=== PATIENT | female | born 2000 | race African-American/Black ===

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

== ENCOUNTER 2022-11-10 10:51 | Emergency (ER) | payer MEDICAID ==
[2022-11-10] MEDS ORDERED: Ibuprofen 600 MG Tab PO ONE (12:57)
[2022-11-10 13:12] LABS: BASOPHILS ABSOLUTE AUTO 0.02 K/mm3 (0.01-0.08); BASOPHILS PERCENT AUTO 0.4 % (0.1-1.2); EOSINOPHILS ABSOLUTE AUTO 0.15 K/mm3 (0.04-0.36); EOSINOPHILS PERCENT AUTO 3.1 (0.7-5.8); HEMATOCRIT 35.3 % (34.1-44.9); LYMPHOCYTES ABSOLUTE AUTO 2.15 K/mm3 (1.18-3.74); LYMPHOCYTES PERCENT AUTO 44.9 % (19.3-51.7); MEAN CORPUSCULAR HEMOGLOBIN 24.7 pg (25.6-32.2); MEAN CORPUSCULAR HGB CONC 31.2 g/dl (32.2-35.5); MEAN CORPUSCULAR VOLUME 79.1 fl (79.4-94.8); MEAN PLATELET VOLUME 9.8 fl (9.4-12.3); MONOCYTES ABSOLUTE AUTO 0.45 K/mm3 (0.24-0.36); MONOCYTES PERCENT AUTO 9.4 % (4.7-12.5); NEUTROPHILS ABSOLUTE AUTO 2.02 K/mm3 (1.56-6.13); NEUTROPHILS PERCENT AUTO 42.2 % (34.0-71.1); PLATELET COUNT,PLT 447 K/mm3 (182-369); RED BLOOD CELL COUNT 4.46 M/mm3 (3.98-5.22); WHITE BLOOD CELL COUNT,WBC 4.79 K/mm3 (3.98-10.04)
[2022-11-10 13:30] LABS: ANION GAP 15.8 (5-15); BUN/CREATININE RATIO 11.1 (14-18); CALCIUM 9.2 mg/dL (8.5-10.1); CREATININE 0.9 mg/dL (0.55-1.02); EST CRCL DRUG DOSING (CG) 86.1 mL/min; POTASSIUM,K 3.8 mEq/L (3.5-5.1)
[2022-11-10 13:43] LABS: A/G RATIO 1.1 (1-2); BILIRUBIN TOTAL 0.3 mg/dL (0.2-1.0); PROTEIN TOTAL,TP 7.7 g/dl (6.4-8.2)
== END 2022-11-10 15:40 | disposition home or self-care (01) ==
LOC: JD.ED 10:51
DX: N93.9 Abnormal uterine and vaginal bleeding, unspecified (principal)
CPT/HCPCS: 36415; 76856; 80053; 85025; 99284; A9270

== ENCOUNTER 2023-11-28 03:41 | Emergency (ER) | payer MEDICAID ==
[2023-11-28] MEDS: Sodium Chloride 0.9% 1,000 ML IV SCH (04:24)
[2023-11-28] MEDS: Sodium Chloride 0.9% 10 ML Syringe FLUSH PRN (04:26)
[2023-11-28] MEDS: Ondansetron 4 MG/2 ML SDV IVPUSH ONE (04:26)
[2023-11-28 04:29] LABS: BASOPHILS PERCENT AUTO 0.3 % (0.0-1.0); EOSINOPHILS ABSOLUTE AUTO 0.1 K/mm3 (0.0-0.4); EOSINOPHILS PERCENT AUTO 1.1 % (0.0-6.0); HEMOGLOBIN 12.5 gm/dl (12.0-16.0); IMMATURE GRAN ABSOLUTE AUTO 0.02 K/mm3 (0.00-0.05); IMMATURE GRAN PERCENT AUTO 0.3 % (0.0-0.4); LYMPHOCYTES ABSOLUTE AUTO 1.8 K/mm3 (1.0-4.8); LYMPHOCYTES PERCENT AUTO 23.4 % (24.0-44.0); MEAN CORPUSCULAR HEMOGLOBIN 23.8 pg (28.0-32.0); MEAN CORPUSCULAR HGB CONC 31.3 g/dl (32.0-36.0); MEAN CORPUSCULAR VOLUME 76.2 fl (83.0-99.0); MEAN PLATELET VOLUME 9.5 fl (9.4-12.3); MONOCYTES ABSOLUTE AUTO 0.5 K/mm3 (0.0-0.8); MONOCYTES PERCENT AUTO 6.8 % (0.0-8.0); NEUTROPHILS ABSOLUTE AUTO 5.1 K/mm3 (1.8-7.7); NEUTROPHILS PERCENT AUTO 68.1 % (41.0-71.0); PLATELET COUNT,PLT 444 K/mm3 (150-400); RED BLOOD CELL COUNT 5.25 M/mm3 (4.10-5.30); WHITE BLOOD CELL COUNT,WBC 7.53 K/mm3 (3.9-11.3)
[2023-11-28 04:49] LABS: A/G RATIO 1.1 (1-2); ALBUMIN 4.3 g/dl (3.4-5.0); ANION GAP 16.1 (5-15); BILIRUBIN TOTAL 0.5 mg/dL (0.2-1.0); BUN/CREATININE RATIO 6.7 (14-18); CALCIUM 9.4 mg/dL (8.5-10.1); CREATININE 0.9 mg/dL (0.55-1.02); EST CRCL DRUG DOSING (CG) 85.38 mL/min; POTASSIUM,K 3.1 mEq/L (3.5-5.1); PROTEIN TOTAL,TP 8.4 g/dl (6.4-8.2)
[2023-11-28] MEDS: Potassium Chloride 20 MEQ Tab.ER PO ONE (05:21)
== END 2023-11-28 05:28 | disposition home or self-care (01) ==
LOC: JD.ED 03:41
DX: R10.30 Lower abdominal pain, unspecified (principal); R05.9 Cough, unspecified; Z79.899 Other long term (current) drug therapy
CPT/HCPCS: 36415; 80053; 83690; 84703; 85025; 96361; 96374; 99284; A9270; J2405; J3490; J7030

== ENCOUNTER 2023-12-17 09:33 | Emergency (ER) | payer MEDICAID ==
[2023-12-17] MEDS: Ibuprofen 600 MG Tab PO ONE (10:17)
[2023-12-17] MEDS: Cefdinir 300 MG Cap PO ONE (10:18)
[2023-12-17] MEDS: Acetaminophen/oxyCODONE 325-5 MG Tab PO ONE (10:18)
== END 2023-12-17 10:20 | disposition home or self-care (01) ==
LOC: JD.ED 09:33
DX: H65.92 Unspecified nonsuppurative otitis media, left ear (principal); J03.00 Acute streptococcal tonsillitis, unspecified
CPT/HCPCS: 99282; A9270; 99283

== ENCOUNTER 2023-12-18 06:55 | Emergency (ER) | payer MEDICAID ==
[2023-12-18] MEDS ORDERED: Sodium Chloride 0.9% 10 ML Syringe FLUSH PRN (07:34)
[2023-12-18] MEDS: Ketorolac 30 MG/ML SDV IVPUSH ONE (07:58)
[2023-12-18] MEDS: methylPREDNISolone Sodium Succinate 125 MG/2 ML SDV IVPUSH ONE (07:59)
[2023-12-18] MEDS: cefTRIAXone 1 GM in Sodium Chloride 0.9% 100 ML IV ONE (07:59)
[2023-12-18] MEDS: Sodium Chloride 0.9% 1,000 ML IV SCH (08:11)
[2023-12-18 08:12] LABS: BASOPHILS PERCENT AUTO 0.2 % (0.0-1.0); HEMATOCRIT 36.3 % (37.0-47.0); HEMOGLOBIN 11.5 gm/dl (12.0-16.0); IMMATURE GRAN PERCENT AUTO 0.8 % (0.0-0.4); LYMPHOCYTES ABSOLUTE AUTO 0.7 K/mm3 (1.0-4.8); LYMPHOCYTES PERCENT AUTO 5.1 % (24.0-44.0); MEAN CORPUSCULAR HEMOGLOBIN 23.9 pg (28.0-32.0); MEAN CORPUSCULAR HGB CONC 31.7 g/dl (32.0-36.0); MEAN CORPUSCULAR VOLUME 75.5 fl (83.0-99.0); MEAN PLATELET VOLUME 9.5 fl (9.4-12.3); MONOCYTES ABSOLUTE AUTO 0.7 K/mm3 (0.0-0.8); MONOCYTES PERCENT AUTO 5.3 % (0.0-8.0); NEUTROPHILS ABSOLUTE AUTO 11.6 K/mm3 (1.8-7.7); NEUTROPHILS PERCENT AUTO 88.6 % (41.0-71.0); RED BLOOD CELL COUNT 4.81 M/mm3 (4.10-5.30); WHITE BLOOD CELL COUNT,WBC 13.08 K/mm3 (3.9-11.3)
[2023-12-18 08:14] LABS: PLATELET COUNT,PLT 309 K/mm3 (150-400)
[2023-12-18 08:37] LABS: A/G RATIO 0.9 (1-2); ALBUMIN 3.8 g/dl (3.4-5.0); ANION GAP 14.4 (5-15); BILIRUBIN TOTAL 0.9 mg/dL (0.2-1.0); CALCIUM 9.3 mg/dL (8.5-10.1); EST CRCL DRUG DOSING (CG) 3.34 mL/min; PROTEIN TOTAL,TP 8.2 g/dl (6.4-8.2)
[2023-12-18 08:43] LABS: POTASSIUM,K 4.4 mEq/L (3.5-5.1)
[2023-12-18] MEDS: HYDROmorphone 0.5 MG/0.5 ML Syringe IVPUSH ONE (08:59)
== END 2023-12-18 09:20 | disposition home or self-care (01) ==
LOC: JD.ED 06:55
DX: J03.00 Acute streptococcal tonsillitis, unspecified (principal); H65.92 Unspecified nonsuppurative otitis media, left ear; Z79.899 Other long term (current) drug therapy
CPT/HCPCS: 36415; 80053; 85025; 86308; 87651; 96365; 96375; 99283; J0696; J1885; J2919; J3490; J7030; 99284

== ENCOUNTER 2024-01-05 13:05 | Emergency (ER) | payer MEDICAID ==
[2024-01-05] MEDS ORDERED: Cefdinir 300 MG Cap PO ONE (15:10)
== END 2024-01-05 15:15 | disposition home or self-care (01) ==
LOC: JD.ED 13:05
DX: J03.00 Acute streptococcal tonsillitis, unspecified (principal)
CPT/HCPCS: 99283

== ENCOUNTER 2024-05-27 11:37 | Emergency (ER) | payer MEDICAID ==
[2024-05-27] MEDS: Ketorolac 10 MG Tab PO ONE (12:37)
== END 2024-05-27 13:38 | disposition home or self-care (01) ==
LOC: JD.ED 11:37
DX: M54.50 Low back pain, unspecified (principal)
CPT/HCPCS: 72131; 72192; 99283; A9270

== ENCOUNTER 2024-07-03 18:34 | Emergency (ER) | payer MEDICAID ==
[2024-07-03 19:59] LABS: APPEARANCE,URINE SLT CLOUDY (Clear); BILIRUBIN,URINE NEGATIVE (Negative); COLOR,URINE YELLOW (Yellow); GLUCOSE,URINE NEGATIVE (Negative); KETONES,URINE NEGATIVE (Negative); LEUKOCYTE ESTERASE,URINE 3+ (Negative); NITRITE,URINE NEGATIVE (Negative); OCCULT BLOOD,URINE NEGATIVE (Negative); PH,URINE 7.5 (5.0-8.0); PROTEIN,URINE NEGATIVE (Negative); UROBILINOGEN,URINE 0.2 (0.2-1.0)
[2024-07-03 20:08] LABS: AMORPHOUS SEDIMENT,URINE FEW /hpf (NOT SEEN); BACTERIA,URINE MODERATE /hpf (FEW); MUCUS,URINE FEW /hpf (FEW); RBC,URINE 0-5 /hpf (0-5); WBC,URINE 20-30 /hpf (0-5)
[2024-07-03 20:23] LABS: HEPATITIS C AB NON-REACTIVE (Non-React)
[2024-07-03 21:34] LABS: RAPID PLASMA REAGIN,RPR NON-REACTIVE (NONREACTIVE)
[2024-07-04 00:11] LABS: C. TRACHOMATIS BY PCR DETECTED; N. GONORRHOEAE BY PCR NOT DETECTED
[2024-07-05 10:47] LABS: HSV1-GLYCO-G AB,IGGBYCIA <0.01 IV (<=0.89); HSV2-GLYCO-G AB,IGGBYCIA 0.03 IV (<=0.89)
== END 2024-07-03 20:11 | disposition home or self-care (01) ==
LOC: JD.ED 18:34
DX: Z20.2 Contact with and (suspected) exposure to infections with a predominantly sexual mode of transmission (principal); Z79.899 Other long term (current) drug therapy
CPT/HCPCS: 36415; 81001; 86592; 86695; 86696; 86803; 87491; 87591; 99283; G0433

== ENCOUNTER 2024-07-04 20:56 | Emergency (ER) | payer MEDICAID ==
[2024-07-04 23:31] LABS: APPEARANCE,URINE SLT CLOUDY (Clear); BILIRUBIN,URINE NEGATIVE (Negative); COLOR,URINE YELLOW (Yellow); GLUCOSE,URINE NEGATIVE (Negative); KETONES,URINE NEGATIVE (Negative); LEUKOCYTE ESTERASE,URINE NEGATIVE (Negative); NITRITE,URINE NEGATIVE (Negative); OCCULT BLOOD,URINE NEGATIVE (Negative); PROTEIN,URINE NEGATIVE (Negative); UROBILINOGEN,URINE 0.2 (0.2-1.0)
[2024-07-05] MEDS: cefTRIAXone 1 GM, Lidocaine 1% 2.1 ML IM ONE (00:09)
[2024-07-05] MEDS: Doxycycline Monohydrate 100 MG Cap PO ONE (00:09)
== END 2024-07-04 23:30 | disposition home or self-care (01) ==
LOC: JD.ED 20:56
DX: N72 Inflammatory disease of cervix uteri (principal); A74.9 Chlamydial infection, unspecified; F17.210 Nicotine dependence, cigarettes, uncomplicated; Z20.2 Contact with and (suspected) exposure to infections with a predominantly sexual mode of transmission; Z86.16 Personal history of COVID-19
CPT/HCPCS: 36415; 81003; 81515; 84702; 96372; 99283

== ENCOUNTER 2024-08-27 10:32 | Emergency (ER) | payer MEDICAID | END 2024-08-27 11:45 | disposition home or self-care (01) | LOC: JD.ED 10:32 | DX: S00.411A Abrasion of right ear, initial encounter (principal); H65.03 Acute serous otitis media, bilateral; Z79.899 Other long term (current) drug therapy; Z86.16 Personal history of COVID-19; X58.XXXA Exposure to other specified factors, initial encounter; Y93.89 Activity, other specified | CPT/HCPCS: 99282; 99283 ==

== ENCOUNTER 2024-09-22 10:56 | Emergency (ER) | payer MEDICAID ==
[2024-09-22] MEDS ORDERED: Sodium Chloride 0.9% 10 ML Syringe FLUSH PRN (11:21)
[2024-09-22] MEDS: Sodium Chloride 0.9% 1,000 ML IV STA (11:36)
[2024-09-22] MEDS: Ondansetron 4 MG/2 ML SDV IVPUSH ONE (11:36)
[2024-09-22 11:50] LABS: APPEARANCE,URINE CLEAR (Clear); BILIRUBIN,URINE NEGATIVE (Negative); COLOR,URINE YELLOW (Yellow); GLUCOSE,URINE NEGATIVE (Negative); KETONES,URINE NEGATIVE (Negative); LEUKOCYTE ESTERASE,URINE NEGATIVE (Negative); NITRITE,URINE NEGATIVE (Negative); OCCULT BLOOD,URINE NEGATIVE (Negative); PROTEIN,URINE TRACE (Negative); UROBILINOGEN,URINE 0.2 (0.2-1.0)
[2024-09-22 11:55] LABS: BASOPHILS PERCENT AUTO 0.5 % (0.0-1.0); EOSINOPHILS ABSOLUTE AUTO 0.1 K/mm3 (0.0-0.4); EOSINOPHILS PERCENT AUTO 1.6 % (0.0-6.0); HEMATOCRIT 40.1 % (37.0-47.0); IMMATURE GRAN ABSOLUTE AUTO 0.01 K/mm3 (0.00-0.05); IMMATURE GRAN PERCENT AUTO 0.2 % (0.0-0.4); LYMPHOCYTES ABSOLUTE AUTO 1.4 K/mm3 (1.0-4.8); LYMPHOCYTES PERCENT AUTO 24.9 % (24.0-44.0); MEAN CORPUSCULAR HEMOGLOBIN 27.2 pg (28.0-32.0); MEAN CORPUSCULAR HGB CONC 32.9 g/dl (32.0-36.0); MEAN PLATELET VOLUME 9.3 fl (9.4-12.3); MONOCYTES ABSOLUTE AUTO 0.6 K/mm3 (0.0-0.8); MONOCYTES PERCENT AUTO 10.5 % (0.0-8.0); NEUTROPHILS ABSOLUTE AUTO 3.4 K/mm3 (1.8-7.7); NEUTROPHILS PERCENT AUTO 62.3 % (41.0-71.0); PLATELET COUNT,PLT 304 K/mm3 (150-400); RED BLOOD CELL COUNT 4.85 M/mm3 (4.10-5.30)
[2024-09-22 11:56] LABS: HEMOGLOBIN 13.2 gm/dl (12.0-16.0); MEAN CORPUSCULAR VOLUME 82.7 fl (83.0-99.0)
[2024-09-22 12:04] LABS: EPITHELIAL CELLS,URINE 0-5 /hpf (0-5); RBC,URINE 0-5 /hpf (0-5); WBC,URINE 0-5 /hpf (0-5)
[2024-09-22 12:05] LABS: BACTERIA,URINE MANY /hpf (FEW); MUCUS,URINE MODERATE /hpf (FEW)
[2024-09-22 12:20] LABS: ALBUMIN 3.8 g/dl (3.4-5.0); ANION GAP 10.9 (5-15); BILIRUBIN TOTAL 0.3 mg/dL (0.2-1.0); BUN/CREATININE RATIO 8.6 (14-18); CALCIUM 9.7 mg/dL (8.5-10.1); CREATININE 0.7 mg/dL (0.55-1.02); EST CRCL DRUG DOSING (CG) 108.86 mL/min; MAGNESIUM 1.9 mg/dL (1.8-2.4); POTASSIUM,K 3.9 mEq/L (3.5-5.1); PROTEIN TOTAL,TP 7.5 g/dl (6.4-8.2)
== END 2024-09-22 12:25 | disposition left against medical advice (07) ==
LOC: JD.ED 10:56
DX: O21.9 Vomiting of pregnancy, unspecified (principal); R10.30 Lower abdominal pain, unspecified; Z79.899 Other long term (current) drug therapy; Z3A.01 Less than 8 weeks gestation of pregnancy; Z86.16 Personal history of COVID-19
CPT/HCPCS: 36415; 76817; 80053; 81001; 83690; 83735; 84702; 85025; 96361; 96374; 99284; J2405; J7030

== ENCOUNTER 2024-10-22 11:35 | Emergency (ER) | payer MEDICAID ==
[2024-10-22] MEDS: Metoclopramide 10 MG/2 ML SDV IVPUSH ONE (12:27)
[2024-10-22] MEDS: Sodium Chloride 0.9% 10 ML Syringe FLUSH PRN (12:30)
[2024-10-22] MEDS: Sodium Chloride 0.9% 1,000 ML IV STA (12:30)
[2024-10-22 12:31] LABS: BASOPHILS PERCENT AUTO 0.6 % (0.0-1.0); EOSINOPHILS PERCENT AUTO 0.9 % (0.0-6.0); HEMATOCRIT 40.5 % (37.0-47.0); HEMOGLOBIN 13.6 gm/dl (12.0-16.0); IMMATURE GRAN ABSOLUTE AUTO 0.01 K/mm3 (0.00-0.05); IMMATURE GRAN PERCENT AUTO 0.3 % (0.0-0.4); LYMPHOCYTES ABSOLUTE AUTO 1.2 K/mm3 (1.0-4.8); LYMPHOCYTES PERCENT AUTO 37.5 % (24.0-44.0); MEAN CORPUSCULAR HEMOGLOBIN 26.9 pg (28.0-32.0); MEAN CORPUSCULAR HGB CONC 33.6 g/dl (32.0-36.0); MEAN PLATELET VOLUME 9.4 fl (9.4-12.3); MONOCYTES ABSOLUTE AUTO 0.3 K/mm3 (0.0-0.8); MONOCYTES PERCENT AUTO 10.6 % (0.0-8.0); NEUTROPHILS ABSOLUTE AUTO 1.6 K/mm3 (1.8-7.7); NEUTROPHILS PERCENT AUTO 50.1 % (41.0-71.0); PLATELET COUNT,PLT 260 K/mm3 (150-400); RED BLOOD CELL COUNT 5.06 M/mm3 (4.10-5.30)
[2024-10-22] MEDS: HYDROmorphone 0.5 MG/0.5 ML Syringe IVPUSH ONE (12:45)
[2024-10-22] MEDS: diphenhydrAMINE 50 MG/ML SDV IVPUSH ONE (12:46)
[2024-10-22 12:49] LABS: A/G RATIO 0.9 (1-2); ALBUMIN 3.7 g/dl (3.4-5.0); ANION GAP 14.6 (5-15); BILIRUBIN TOTAL 0.2 mg/dL (0.2-1.0); BUN/CREATININE RATIO 7.1 (14-18); CALCIUM 9.4 mg/dL (8.5-10.1); CREATININE 0.7 mg/dL (0.55-1.02); EST CRCL DRUG DOSING (CG) 108.86 mL/min; POTASSIUM,K 3.6 mEq/L (3.5-5.1)
== END 2024-10-22 13:50 | disposition home or self-care (01) ==
LOC: JD.ED 11:35
DX: O21.9 Vomiting of pregnancy, unspecified (principal); Z79.899 Other long term (current) drug therapy; Z86.16 Personal history of COVID-19; Z3A.12 12 weeks gestation of pregnancy
CPT/HCPCS: 36415; 80053; 83690; 85025; 96361; 96374; 96375; 99284; J1200; J2765; J7030; 99283